=== PATIENT | female | born 1950 | race Caucasian/White ===

== ENCOUNTER 2017-10-19 08:45 | Day surgery (SDC) | payer OTHER ==
--- NOTE | 2017-10-18 14:48 | HISTORY & PHYSICAL EXAMINATION ---
DATE OF ADMISSION: 10/19/2017 HISTORY OF PRESENT ILLNESS: The patient presents as a 67-year-old white female, 5 feet 4 inches, 244 pounds with right shoulder pain with AC joint DJD and a full thickness rotator cuff tear for arthroscopic evaluation and rotator cuff repair. The patient has failed attempts at conservative management including physical therapy, anti-inflammatories, relative rest and presents for arthroscopic evaluation of her right shoulder. PAST MEDICAL HISTORY: Consistent with angina, heart murmur, previous heart valve abnormality, hypertension, hypercholesterolemia, asthma, diabetes for which the patient is scheduled currently on insulin as well as hypothyroid with Shmuel thyroiditis, osteoarthritis, acid reflux, and obesity. FAMILY HISTORY: Unremarkable and noncontributory. SOCIAL HISTORY: The patient denies history of alcohol, smoking or recreational drug use. PAST SURGICAL HISTORY: Significant for tubal ligation, tonsillectomy and adenoidectomy, previous right shoulder cyst removal, and bilateral knee replacement in September of 2010. ALLERGIES: VICTOZA AND HYDROCHLOROTHIAZIDE. MEDICATIONS: Include Lipitor 10 mg p.o. daily, metformin 500 mg orally 2 tablets in the morning and with evening meal, omeprazole 20 mg p.o. at bedtime, aspirin 81 mg p.o. daily, levothyroxine 175 mcg daily, ProAir inhaler as needed, albuterol sulfate 0.63 mg and 3 mL solution nebulizer daily, cyclobenzaprine 10 mg t.i.d., Ultram 50 mg p.o. daily, Pyridium 100 mg tablets 3 times a day as needed, Coreg 3.125 mg tablet b.i.d., and Nitrostat 0.4 sublingual tablet as needed. REVIEW OF SYSTEMS: Otherwise unremarkable PHYSICAL EXAMINATION: HEENT: Otherwise unremarkable. HEART: Regular at 70 beats per minute. LUNGS: Clear. No rales, rhonchi, or wheezes noted. ABDOMEN: Soft, nontender, nondistended. Bowel sounds are present in all 4 quadrants. RECTAL: No rectal examination was performed. MUSCULOSKELETAL: Consistent with that of right shoulder pain with weakness for rotator cuff tear. PLAN: For arthroscopy, arthroscopic rotator cuff repair, postoperative pain management, DVT prophylaxis, antibiotics as necessary. [facility]
[2017-10-18 15:58] VITALS: BMI 42.0
[~2017-10-19] VITALS: Ht 162.6 cm; Wt 110.9 kg
--- NOTE | 2017-10-19 08:16 | History & Physical Bridge Note ---
H&P Re-Evaluation Bridge Note: I have examined the patient, reviewed the History & Physical and in the interval since the performance of the History & Physical I have noted the following changes of clinical significance: No changes noted
[~2017-10-19 08:45] MED LIST: ACET-1256 PO; ALBU0.633 NEB; ASPI81TA28 PO; ATOR10TA82 PO; ATROPINE SULFATE 0.1 MG/ML 5ML SYR IV PRN; CARV3.122 PO; CEFAZOLIN 1000MG IV PUSH 5 ML IV SCH; CLR10 PO; CYCL10TA6 PO; EMPA1TAB5 PO; EpHEDrine SULFATE INJ 50 MG/ML AMP IV PRN; FENTANYL CITRATE INJ 50 MCG/1 ML 2 ML VIAL IV PRN; FLUT0.15; GLC/500 PO; KLN/5 PO; LACTATED RINGER'S 1000ML 1,000 ML IV SCH; LEVO175T3 PO; LISI-461 PO; LVMI SC; NTRGSL/4 UT; ONDANSETRON INJ 2 MG/ML 2 ML VIAL IV PRN; PATIENT'S HEIGHT AND/OR WEIGHT NEEDED SCH; PHEN-876 PEG; PRLSR20 PO; QVAR INH; TRAM-10 PO; VNTHFA/IN INH
[2017-10-19] MEDS ORDERED: MIDAZOLAM HCL 1 MG/ML 2ML VIAL ONE (08:53)
[2017-10-19] MEDS ORDERED: FENTANYL CITRATE INJ 50 MCG/1 ML 2 ML VIAL ONE (08:53)
[2017-10-19] MEDS ORDERED: ROPIVACAINE 0.5% 5 MG/ML 30 ML VIAL ONE (09:09)
[2017-10-19 09:20] VITALS: BP 136/74; PULSE 73; TEMP 36.3; O2SAT 98; Ht 162.6 cm; Wt 110.9 kg
[2017-10-19] MEDS ORDERED: GLYCOPYRROLATE INJ 0.2 MG/ML VIAL ONE (09:28)
[2017-10-19] MEDS ORDERED: ROCURONIUM BROMIDE 10 MG/ML 5 ML VIAL IV ONE (09:28)
[2017-10-19] MEDS ORDERED: ONDANSETRON INJ 2 MG/ML 2 ML VIAL ONE (09:28)
[2017-10-19] MEDS ORDERED: NEOSTIGMINE METHYLSULFATE 5 MG/5 ML SYR ONE (09:28)
[2017-10-19] MEDS ORDERED: LARYING-O-JET KIT (LTA) ONE (09:28)
[2017-10-19] MEDS ORDERED: PHENYLEPHRINE 100MCG/ML 5ML SYR ONE (09:28)
[2017-10-19] MEDS ORDERED: LIDOCAINE HCL 2% 2 ML VIAL (20MG/ML) ONE (09:28)
[2017-10-19] MEDS ORDERED: EpHEDrine SULFATE 50MG/5ML SYR ONE (09:28)
[2017-10-19] MEDS ORDERED: PROPOFOL IV EMULSION 10 MG/ML 20 ML VIAL IV ONE (09:28)
--- NOTE | 2017-10-19 09:40 | History & Physical Bridge Note ---
H&P Re-Evaluation Bridge Note: I have examined the patient, reviewed the History & Physical and in the interval since the performance of the History & Physical I have noted the following changes of clinical significance: Please note right shoulder arthroscopy possible rotator cuff repair acromioplasty possible distal clavicle excision
[2017-10-19] MEDS ORDERED: EpINEphrine HCL INJ 1 MG/ML 1ML SYRINGE ONE (10:27)
--- NOTE | 2017-10-19 13:37 | [facility] Operative Report ---
Operative Report Operative Date Oct 19, 2017. Pre-Operative Diagnosis Acromial Joint Degenerative Joint Disease, Full Thickness Rotator Cuff Tear Post-Operative Diagnosis same as preoperative Procedure(s) Performed Right Shoulder Arthroscopic Subacromial Decompression, Distal Clavicle Excision, Rotator Cuff Repair utilizing double row repair technique with Arthrex swivel lock and 4.[address] 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 Surgeon(s) Willis Quintana PA-C Estimated Blood Loss 2mL Findings Patient presents with a full-thickness tear supraspinatus tendon nonresponsive to conservative to conservative therapy before meals joint DJD impingement syndrome patient been unresponsive injections physical therapy rest activity modification his pain night pain and weakness presents for arthroscopy of right shoulder rotator cuff repair Specimens none, per Surgeon Complication(s) None Disposition Recovery Room / PACU Indications Patient presents with full-thickness rotator cuff tear supraspinous tendon approximately 2 cm x 2 cm the before meals joint DJD and acromion type 2-3 is been unresponsive to conservative therapy presents for arthroscopy Description of Procedure After proper prepping draping the right total region or scopic portal placed posteriorly revealed there to be some mild glenohumeral arthritis there was some fraying and tearing of the superior glenoid labrum was debrided to a stable margin full-thickness rotator cuff tear was visualized was noted be partially 2 x 2 centimeters debrided to a stable edge socially interfered arthroplasty was performed as well as distal clavicle excision removing the distal 10 mm of bone informed thorough complete a chondroplasty acromioplasty with the distal clavicle excision the free edges of the rotator cuff tendon were debrided back to a stable edge been of bleeding bone was repaired and subsequently a 4.5 mm double loaded Arthrex anchors placed rotator cuff repair back cubital bleeding bone socially a swivel lock and she is a double row repair was performed closure was 0 sensational fisherman appreciably skin was closed for allowing sterile compressive dressing placed patient taken recovery stable condition please note Willis Quintana is necessary as PA for prepping draping retraction wound closure as well as arm positioning and suture management was necessary for the case I attest to the content of the Intraoperative Record and any orders documented therein. Any exceptions are noted below.
[2017-10-19] MEDS ORDERED: OXYC-57 PO (13:54)
--- NOTE | 2017-10-19 13:59 | Discharge Instructions ---
Discharge Instructions Date of Service Oct 19, 2017. Visit Reason for Visit: Right Shoulder Impingement Syndrome, Osteoarthriti Discharge Discharge Diagnosis / Problem: Right Shoulder Rotator Cuff Tear, Impingement Syndrome, Osteoarthritis Discharge Goals Goal(s): Decrease discomfort, Improve function, Increase independence Activity Recommendations Activity Limitations: per Instructions/Follow-up section Anesthesia . Post Anesthesia Instructions: If you have had General Anesthesia or IV Sedation: * Do not drive today. * Resume driving when surgeon permits. * Do not make important decisions or sign legal documents today. * Call surgeon for: 1. Temperature elevations greater than 101 degrees F. 2. Uncontrollable pain. 3. Excessive bleeding. 4. Persistent nausea and vomiting. 5. Medication intolerance (nausea, vomiting or rash). * For nausea and vomiting use only clear liquids such as: tea, soda, bouillon until nausea subsides, then gradually increase diet as tolerated. * If you have any concerns or questions, call your surgeon's office. If physician is unavailable and it is an emergency, call 911 or go to the nearest emergency room. . Instructions / Follow-Up Instructions / Follow-Up U DISCHARGE INSTRUCTIONS: ROTATOR CUFF REPAIR SELF CARE INSTRUCTIONS A. You are permitted to loosen your sling/immobilizer to move your elbow, wrist , and hand to prevent stiffness. You should use your well arm (good arm) to assist the operated extremity when trying to raise the arm away from the body, hygiene purposes. Do NOT actively try to use/engage your shoulder muscles in operative arm at this time. You should NOT do overhead activity, lifting, or attempt to reach behind your back. B. You will be instructed to start Physical Therapy upon discharge depending upon the size and difficulty of the repair. You will be provided a prescription for therapy with specific restrictions, if needed, at time of discharge. C. At 48 hours post-operatively, you may change your dressing. (Leave white steri-strips intact if present). Use band-aids and change daily. You are allowed to shower at this time and get the incision area wet, but DO NOT soak or submerge incision area in water. (No baths, swimming pools, hot tubs) D. Do NOT apply soap or any ointment/lotions directly over incision. E. You may use ice as needed to operative shoulder SPECIAL CARE INSTRUCTIONS: VERY IMPORTANT TO READ AND REVIEW A. There are a few signs you need to watch for after you are home. Call [facility] at [phone] if you experience any of the following: a. Increased severe shoulder pain. Some pain is expected especially when you exercise b. Increased swelling in your shoulder or arm; pain or swelling in either upper extremity. (Note: swelling and stiffness is normal and expected for several weeks post op, depending on type of shoulder surgery you had). c. Any fluid or drainage from the incision; redness of the incision. d. Shortness of breath or chest pain. B. Please call [facility] at [phone] if you have any questions or concerns about your operation or recovery. C. Call your physician if: a. Temperature is greater than 101 degrees (F). b. Pain is not relieved by prescribed pain medications. c. Increase drainage or redness from incision. d. Unanswered questions or concerns. D. Pain Medication: a. You will be prescribed pain medication upon discharge that should last till your first post-operative appointment. b. If you experience nausea and/or skin rash, discontinue this medication and contact our office for an alternative medication. c. Caution- narcotic pain medication can cause constipation. FOLLOW UP VISIT: Please call [facility] at [phone] to schedule a follow up appointment 10-14 days from your surgery date. Diet Recommendations Recommended Home Diet: resume previous diet Procedures Procedures Performed: Right Shoulder Arthroscopic Subacromial Decompression, Distal Clavicle Excision, Rotator Cuff Repair utilizing double row repair technique with Arthrex swivel lock and 4.5 double loaded anchor Pending Studies Studies pending at discharge: no Medical Emergencies . Who to Call and When: Medical Emergencies: If at any time you feel your situation is an emergency, please call 911 immediately. . Non-Emergent Contact Non-Emergency issues call your: Surgeon Call Non-Emergent contact if: temperature is above 101.5, your pain is not controlled, your pain is worsening, wound has increased drainage, wound has increased redness . . "Provider Documentation" section prepared by Willis Quintana. . [place] Drug Monitoring Program Search Results: patient reviewed within database, no issues identified
[2017-10-19] MEDS ORDERED: ONDANSETRON INJ 2 MG/ML 2 ML VIAL IV PRN (14:00)
[2017-10-19] MEDS ORDERED: MoRPHine SULFATE 4 MG/ML 1 ML CARP\\VIAL IV PRN (14:00)
[2017-10-19] MEDS ORDERED: KETOROLAC TROMETHAMINE 15 MG/ML VIAL IV. PRN (14:00)
[2017-10-19] MEDS ORDERED: MoRPHine SULFATE 2 MG/ML CARP IV PRN (14:00)
[2017-10-19] MEDS ORDERED: OXYCODONE HCL IR 5 MG TAB (IMMEDIATE RELEASE) PO PRN (14:00)
[2017-10-19] MEDS ORDERED: OXYCODONE/ACETAMINOPHEN 5-325 TAB PO PRN (14:00)
[2017-10-19] MEDS ORDERED: ACETAMINOPHEN 500 MG TAB PO PRN (14:00)
--- NOTE | 2017-10-19 14:41 | Anesthesiology Progress Note ---
Anesthesia Post Op Note Date & Time Oct 19, 2017 at 14:40 Vital Signs Pain Intensity: 0 Vital Signs Past 12 Hours Date Time Temp Pulse Resp B/P (MAP) Pulse Ox O2 Delivery O2 Flow Rate FiO2 10/19/17 14:25 36.4 71 12 132/57 96 Room Air 10/19/17 14:15 70 14 136/70 97 Room Air 10/19/17 14:05 67 15 136/69 100 Oxymask 10 10/19/17 13:55 71 15 143/82 100 Oxymask 10 10/19/17 13:47 36.3 76 16 145/71 99 Oxymask 10 10/19/17 09:20 36.3 73 20 136/74 (94) 98 Room Air Notes Mental Status: alert / awake / arousable, participated in evaluation Pt Amnestic to Procedure: Yes Nausea / Vomiting: adequately controlled Pain: adequately controlled Airway Patency, RR, SpO2: stable & adequate BP & HR: stable & adequate Hydration State: stable & adequate Anesthetic Complications: no major complications apparent Anesthetic Complications: block functioning well.
[2017-10-19 14:43] VITALS: BP 134/64; PULSE 74; TEMP 36.8; O2SAT 95
[2017-10-19 15:13] VITALS: BP 137/63; PULSE 70; O2SAT 96
[2017-10-19 15:43] VITALS: BP 130/60; PULSE 78; O2SAT 97
== END 2017-10-19 15:58 | disposition home or self-care (01) ==
LOC: C.ACU 08:45
PROVIDERS: ATTEND Orthopaedic Surgery
DX: M75.121 Complete rotator cuff tear or rupture of right shoulder, not specified as traumatic (principal); M19.011 Primary osteoarthritis, right shoulder; I10 Essential (primary) hypertension; E78.00 Pure hypercholesterolemia, unspecified; J45.909 Unspecified asthma, uncomplicated; E11.9 Type 2 diabetes mellitus without complications; Z79.4 Long term (current) use of insulin; E03.9 Hypothyroidism, unspecified; E06.3 Autoimmune thyroiditis; K21.9 Gastro-esophageal reflux disease without esophagitis; E66.01 Morbid (severe) obesity due to excess calories; Z96.653 Presence of artificial knee joint, bilateral; Z98.51 Tubal ligation status; I25.2 Old myocardial infarction; I25.10 Atherosclerotic heart disease of native coronary artery without angina pectoris; E78.5 Hyperlipidemia, unspecified